=== PATIENT | male | born 1980 | race Caucasian/White ===

== ENCOUNTER 2023-06-30 08:40 | Emergency (ER) | payer OTHER, MEDICAID ==
[~2023-06-30] VITALS: Ht 167.6 cm; Wt 90.7 kg
[2023-06-30 08:45] VITALS: BP 141/85; PULSE 94; RESP 18; TEMP 98.6; O2SAT 99
[2023-06-30 08:54] VITALS: O2SAT 99
[2023-06-30] MEDS ORDERED: IBUP-2213 PO (10:27)
== END 2023-06-30 10:45 | disposition home or self-care (01) ==
LOC: MED 08:40
DX: S82.831A Other fracture of upper and lower end of right fibula, initial encounter for closed fracture (principal); J45.909 Unspecified asthma, uncomplicated; M19.90 Unspecified osteoarthritis, unspecified site; F17.200 Nicotine dependence, unspecified, uncomplicated; Z98.890 Other specified postprocedural states; V86.56XA Driver of dirt bike or motor/cross bike injured in nontraffic accident, initial encounter; Y93.89 Activity, other specified; Y92.89 Other specified places as the place of occurrence of the external cause; Y99.8 Other external cause status
CPT/HCPCS: 29505; 73562; 99283